=== PATIENT | female | born 1990 | race Caucasian/White ===

== ENCOUNTER 2018-01-03 22:04 | Emergency (ER) | payer OTHER ==
[~2018-01-03] VITALS: Ht 152.4 cm; Wt 90.9 kg
[2018-01-03] MEDS ORDERED: IUD IUTER (22:20)
[2018-01-04 01:00] VITALS: BP 117/88
== END 2018-01-04 01:17 | disposition home or self-care (01) ==
LOC: EMS 22:05
DX: M25.475 Effusion, left foot (principal); M79.672 Pain in left foot; Z87.891 Personal history of nicotine dependence
CPT/HCPCS: 93971; 99284